=== PATIENT | female | born 1935 | race Caucasian/White ===

== ENCOUNTER → 2021-05-11 | Outpatient (CLI) | payer MEDICARE, OTHER | LOC: KOH-I 15:30 | DX: H70.90 Unspecified mastoiditis, unspecified ear (principal); J34.2 Deviated nasal septum | CPT/HCPCS: 70486 ==

== ENCOUNTER → 2021-09-21 | Outpatient (CLI) | payer MEDICARE, OTHER | LOC: KOH-I 14:26 | DX: M25.512 Pain in left shoulder (principal); M79.622 Pain in left upper arm; M19.012 Primary osteoarthritis, left shoulder | CPT/HCPCS: 73030; 73060 ==